=== PATIENT | female | born 1975 | race American Indian/Alaskan Native ===

== ENCOUNTER 2018-04-14 21:30 | Emergency (ER) | payer MEDICARE ==
[2018-04-14] MEDS ORDERED: BRETHINE SUB-Q ONE (21:37)
[2018-04-14] MEDS ORDERED: NACL 0.9% 1000 ML 1,000 ML IV ONE (21:37)
--- NOTE | 2018-04-14 21:43 | Emergency Department Report ---
ED Shortness of Breath HPI - General Chief Complaint: Dyspnea/Respdistress Stated Complaint: ENMANUEL Time Seen by Provider: 04/14/18 21:36 Source: patient, EMS Mode of arrival: Stretcher Limitations: No Limitations - History of Present Illness Initial Comments: Mrs. Morgan is a 42-year-old female with history of severe persistent asthma. She has a history of 7 intubations. She has a history of multiple hospitalizations. She presents with several days of shortness of breath and wheezing. On her asthma action plan, she has been in the red zone. She stated that she delayed coming to the hospital. She takes steroids daily. She is taking a injection every 28 days Nucala. She is followed by [facility]. Hospitalization is required every 3 or so months due to severe persistent asthma. Last hospitalization was in December. today en route per EMS she received albuterol Atrovent magnesium Solu-Medrol. She declined epinephrine per EMS. She only takes epinephrine for bee stings. She does not like how epinephrine makes her feel. MD Complaint: shortness of breath -: Gradual, week(s) (1) Severity: severe Pain Scale: 10 Consistency: constant Improves With: nothing Known History Of: asthma Associated Symptoms: chest pain Treatments Prior to Arrival: bronchodilator - Related Data Home Medications Medication Instructions Recorded Confirmed Last Taken ALBUTEROL Inhaler [ProAir HFA 2 puff IH QID PRN 11/20/15 11/20/15 1 Day Ago Inhaler] ~11/19/15 Albuterol *Only Ed* [Proventil 2.5 mg IH Q4H PRN 11/20/15 11/20/15 1 Day Ago 0.5% NEBS] ~11/19/15 Losartan [Cozaar] 100 mg PO QDAY 11/20/15 11/20/15 1 Day Ago ~11/19/15 Tiotropium [Spiriva] 18 mcg IH QDAY 11/20/15 11/20/15 1 Day Ago ~11/19/15 Verapamil HCl [Verapamil ER Pm] 200 mg PO DAILY 11/20/15 11/20/15 1 Day Ago ~11/19/15 methylPREDNISolone [Medrol Dose 60 mg PO DAILY 11/20/15 11/20/15 1 Day Ago Mike] ~11/19/15 Previous Rx's Medication Instructions Recorded Last Taken Type Benzonatate [Tessalon Perles] 100 mg PO Q8HR PRN #30 capsule 11/20/15 Unknown Rx methylPREDNISolone [Medrol Dose 1 dose PO QAM #1 pack 11/20/15 Unknown Rx Mike] Allergies Allergy/AdvReac Type Severity Reaction Status Date / Time No Known Allergies Allergy Verified 05/29/14 01:44 ED Review of Systems ROS: Stated complaint: ENMANUEL Other details as noted in HPI Comment: All other systems reviewed and negative Constitutional: denies: fever, malaise Respiratory: cough Cardiovascular: chest pain ED Past Medical Hx - Past Medical History Hx Hypertension: Yes Hx Asthma: Yes Additional medical history: Severe asthma, intubation 6 - Surgical History Additional Surgical History: bilat knee - Social History Smoking Status: Never Smoker Substance Use Type: Alcohol - Medications Home Medications: Home Medications Medication Instructions Recorded Confirmed Last Taken Type ALBUTEROL Inhaler [ProAir HFA 2 puff IH QID PRN 11/20/15 11/20/15 1 Day Ago History Inhaler] ~11/19/15 Albuterol *Only Ed* [Proventil 2.5 mg IH Q4H PRN 11/20/15 11/20/15 1 Day Ago History 0.5% NEBS] ~11/19/15 Benzonatate [Tessalon Perles] 100 mg PO Q8HR PRN #30 capsule 11/20/15 Unknown Rx Losartan [Cozaar] 100 mg PO QDAY 11/20/15 11/20/15 1 Day Ago History ~11/19/15 Tiotropium [Spiriva] 18 mcg IH QDAY 11/20/15 11/20/15 1 Day Ago History ~11/19/15 Verapamil HCl [Verapamil ER Pm] 200 mg PO DAILY 11/20/15 11/20/15 1 Day Ago History ~11/19/15 methylPREDNISolone [Medrol Dose 1 dose PO QAM #1 pack 11/20/15 Unknown Rx Mike] methylPREDNISolone [Medrol Dose 60 mg PO DAILY 11/20/15 11/20/15 1 Day Ago History Mike] ~11/19/15 ED Physical Exam - General Limitations: No Limitations General appearance: alert, in distress, other (restless severe respiratory distress severe work of breathing) - Head Head exam: Present: atraumatic, normocephalic - Eye Eye exam: Present: normal appearance - ENT ENT exam: Present: normal exam, normal orophraynx, mucous membranes moist - Neck Neck exam: Present: normal inspection. Absent: tenderness, meningismus - Respiratory Respiratory exam: Present: normal lung sounds bilaterally, wheezes, accessory muscle use, decreased breath sounds, prolonged expiratory. Absent: respiratory distress - Cardiovascular Cardiovascular Exam: Present: regular rate, normal rhythm. Absent: systolic murmur, diastolic murmur, rubs, gallop - GI/Abdominal GI/Abdominal exam: Present: soft, normal bowel sounds. Absent: distended, tenderness - Extremities Exam Extremities exam: Present: normal inspection, other (surgical scar right knee) - Back Exam Back exam: Present: normal inspection - Neurological Exam Neurological exam: Present: alert, oriented X3 - Psychiatric Psychiatric exam: Present: normal affect, normal mood - Skin Skin exam: Present: warm, dry, intact, normal color. Absent: rash ED Course Vital Signs 04/14/18 04/14/18 04/14/18 21:30 21:32 21:37 Temperature 98.3 F Pulse Rate 95 H 116 H Pulse Rate [ Throughout] Respiratory 22 32 H 16 Rate Respiratory Rate [ Throughout] Blood Pressure 122/77 122/77 Blood Pressure [Right] O2 Sat by Pulse 99 99 99 Oximetry 04/14/18 04/14/18 04/14/18 22:51 22:54 23:05 Temperature Pulse Rate 81 83 Pulse Rate [ 81 Throughout] Respiratory 20 20 Rate Respiratory 20 Rate [ Throughout] Blood Pressure 135/76 Blood Pressure 131/66 [Right] O2 Sat by Pulse 100 Oximetry - Reevaluation(s) Reevaluation #1: 04/15/18 00:19 I came to the bedside immediately upon arrival. Discussed treatment with respiratory therapist and RN. I also reviewed her electronic record. I discussed treatment plan with family. After treatment in the ED, patient markedly improved. She is now conversant. She is tolerating BiPAP comfortably. She politely declined terbutaline. ED Medical Decision Making - Lab Data Result diagrams: 04/14/18 21:43 04/14/18 21:43 - EKG Data -: EKG Interpreted by Me - EKG Data 04/14/18 21:43 Sinus tachycardia rate of 100 bpm normal axis normal intervals no ST elevation - Radiology Data Radiology results: report reviewed - Medical Decision Making Mrs. Stanton has a history of severe persistent asthma with 6 previous intubations. She is tolerating BiPAP. She requires BiPAP for hypoxia and mild hypercapnia considering patient's elevated respiratory rate. Normal pH on blood gas. Leukocytosis white blood count 19 noted. NO fever. No obvious cough in ED. Elevated WBC attributed to daily steroid use. admitted to hospitalist service in improved stable condition Critical Care Time: Yes (40) Critical care attestation.: If time is entered above; I have spent that time in minutes in the direct care of this critically ill patient, excluding procedure time. ED Disposition Clinical Impression: Acute respiratory failure with hypoxia, Acute asthma exacerbation Disposition: OP ADMIT IP TO THIS HOSP Is pt being admited?: Yes Does the pt Need Aspirin: No Condition: Stable Time of Disposition: 00:26
[2018-04-14] MEDS: ATROVENT IH ONE ×2 (21:59→22:51)
[2018-04-14] MEDS: PROVENTIL IH ONE ×2 (21:59→22:51)
[2018-04-14 22:03] LABS: Basophils # (Auto) 0.1 K/mm3 (0.0-0.1); Basophils % (Auto) 0.4 % (0.0-1.8); Eosinophils % (Auto) 0.2 % (0.0-4.3); Hematocrit 41.6 % (30.3-42.9); Hemoglobin 13.9 gm/dl (10.1-14.3); Lymphocytes # (Auto) 2.2 K/mm3 (1.2-5.4); Lymphocytes % (Auto) 11.2 % (13.4-35.0); Mean Corpuscular HGB Conc 33 % (30-34); Mean Corpuscular Hemoglobin 27 pg (28-32); Mean Corpuscular Volume 80 fl (79-97); Monocytes # (Auto) 1.7 K/mm3 (0.0-0.8); Monocytes % (Auto) 8.6 % (0.0-7.3); Platelet Count 357 K/mm3 (140-440); Red Blood Count 5.18 M/mm3 (3.65-5.03); Red Cell Distribution Width 17.7 % (13.2-15.2)
[2018-04-14 22:22] LABS: Alanine Aminotransferase 29 units/L (7-56); Albumin 4.5 g/dL (3.9-5); BUN/Creatinine Ratio 11; Blood Urea Nitrogen 9 mg/dL (7-17); Calcium 9.1 mg/dL (8.4-10.2); Hemolysis Index 7
--- NOTE | 2018-04-14 22:54 | XRay Report ---
FINAL REPORT PROCEDURE: XR CHEST 1V AP TECHNIQUE: Chest radiograph anteroposterior view. CPT 99560 HISTORY: Dyspnea COMPARISON: No prior studies are available for comparison. FINDINGS: Heart: Normal. Mediastinum/Vessels: Normal. Lungs/Pleural space: No infiltrate, effusion, or pneumothorax. Bony thorax: No acute osseous abnormality. Life support devices: None. IMPRESSION: No radiographic evidence of acute cardiopulmonary abnormality.
[2018-04-14 23:12] VITALS: BP 135/76
== END 2018-04-15 01:36 | disposition admitted as inpatient to this hospital (09) ==
LOC: ED 21:30
DX: J96.01 Acute respiratory failure with hypoxia (principal); J45.901 Unspecified asthma with (acute) exacerbation; I10 Essential (primary) hypertension
CPT/HCPCS: 36415; 71045; 80053; 82803; 84484; 85025; 93005; 93010; 94640; 96360; 99291; J3105; J7030; 99284